=== PATIENT | female | born 1970 | race Caucasian/White ===

== ENCOUNTER 2018-12-06 19:52 | Emergency (ER) | payer BC ==
[~2018-12-06] VITALS: Ht 170.2 cm; Wt 58.6 kg
[2018-12-06 19:54] VITALS: Ht 170.2 cm; Wt 58.6 kg
[2018-12-06] MEDS ORDERED: NITROGLYCERIN 2% 1 GM OINT PKT TD STA (20:07)
[2018-12-06] MEDS ORDERED: ASPIRIN 81 MG TAB PO STA (20:07)
[2018-12-06] MEDS ORDERED: NITROGLYCERIN (SL) 0.4 MG TAB SL PRN (20:30)
[2018-12-06] MEDS ORDERED: IBUP-1542 PO (21:51)
--- NOTE | 2018-12-06 22:04 | ERD ---
ER Documentation Chief Complaint Chief Complaint CHEST PAIN ON/OFF X4DAYS; NO COUGH HPI Patient is a 48-year-old female with no medical problems who presents with chest pain. She said that she has had this off and on for years but today it was worse and she felt tingling in the left shoulder. Her symptoms started 2 PM. She describes it as a sharp pain and then a dull ache which lasts seconds at a time. Upon review of old medical records this is the patient's first visit to the emergency department. She does have a primary doctor and has an appointment with a new authorization rep on Friday. ROS All systems reviewed and are negative except as per history of present illness. Medications Home Meds Active Scripts Ibuprofen* (Motrin*) 600 Mg Tab, 600 MG PO Q6H PRN for PAIN AND OR ELEVATED TEMP, #30 TAB Prov:MARCO ANTONIO CASTANEDA MD 12/06/18 PMhx/Soc Medical and Surgical Hx: pt denies Medical Hx, pt denies Surgical Hx Hx Psychiatric Problems: No Hx Miscellaneous Medical Probl: No Hx Alcohol Use: No Hx Substance Use: No Hx Tobacco Use: No Smoking Status: Unknown if ever smoked FmHx Family History: coronary disease Physical Exam Vitals Vital Signs Date Temp Pulse Resp B/P (MAP) Pulse Ox O2 O2 Flow FiO2 Time Delivery Rate 12/06/18 98.0 94 19 174/83 100 Room Air 20:20 (113) 12/06/18 98.3 98 19 142/81 98 19:54 (101) Physical Exam Const: No acute distress Head: Atraumatic Eyes: Normal Conjunctiva ENT: Normal External Ears, Nose and Mouth. Neck: Full range of motion. No meningismus. Resp: Clear to auscultation bilaterally Cardio: Regular rate and rhythm, no murmurs Abd: Soft, non tender, non distended. Normal bowel sounds Skin: No petechiae or rashes Back: No midline or flank tenderness Ext: No cyanosis, or edema Neur: Awake and alert Psych: Normal Mood and Affect Result Diagram: 12/06/18202212/06/182022 Results 24 hrs Laboratory Tests Test 12/06/18 20:23 12/06/18 20:43 White Blood Count 8.2 10^3/ul Red Blood Count 4.60 10^6/ul Hemoglobin 13.8 g/dl Hematocrit 41.6 % Mean Corpuscular Volume 90.4 fl Mean Corpuscular Hemoglobin 30.0 pg Mean Corpuscular Hemoglobin Concent 33.2 g/dl Red Cell Distribution Width 11.7 % Platelet Count 274 10^3/UL Mean Platelet Volume 11.3 fl Immature Granulocytes % 0.100 % Neutrophils % 66.3 % Lymphocytes % 21.5 % Monocytes % 9.4 % Eosinophils % 1.7 % Basophils % 1.0 % Nucleated Red Blood Cells % 0.0 /100WBC Immature Granulocytes # 0.010 10^3/ul Neutrophils # 5.4 10^3/ul Lymphocytes # 1.8 10^3/ul Monocytes # 0.8 10^3/ul Eosinophils # 0.1 10^3/ul Basophils # 0.1 10^3/ul Nucleated Red Blood Cells # 0.0 10^3/ul Sodium Level 137 mmol/L Potassium Level 3.9 mmol/L Chloride Level 101 mmol/L Carbon Dioxide Level 26 mmol/L Anion Gap 10 Blood Urea Nitrogen 12 mg/dl Creatinine 0.59 mg/dl Est Glomerular Filtrat Rate mL/min > 60 mL/min Glucose Level 111 mg/dl Calcium Level 9.8 mg/dl Troponin I < 0.012 ng/ml POC Beta HCG, Qualitative NEGATIVE Current Medications Medications Dose Sig/Sheri Start Time Status Last (Trade) Ordered Route PRN Stop Time Admin Dose Reason Admin Aspirin 162 mg ONCE STAT 12/06/18 DC 12/06/18 (Aspirin) PO 20:07 20:34 12/06/18 20:09 1 inch ONCE STAT 12/06/18 DC 12/06/18 Nitroglycerin TD 20:07 20:49 12/06/18 20:09 (Nitroglyceri n 2% Oint) 1 tab Q5M UP TO 3 12/06/18 Nitroglycerin DOSES PRN 20:30 SL CHEST (Nitroglyceri PAIN n (Sl Tab) 0.4 Mg) Procedures/MDM EKG #1 read by me: Rate/Rhythm: Regular rate and rhythm at a normal rate Intervals: Normal Impression: No evidence of ischemia or arrhythmia EKG #2 read by me: Rate/Rhythm: Regular rate and rhythm at a normal rate Intervals: Normal Impression: No evidence of ischemia or arrhythmia Chest x-ray negative per radiology. Patient is a 48-year-old female with no cardiac risk factors who presents with chest pain. Laboratory studies were normal including a normal troponin. 2 EKGs were normal. Chest x-ray shows no signs of pneumonia or pneumothorax. At this point I doubt acute coronary syndrome, pneumonia, pneumothorax, pulmonary embolism, or aortic dissection. The patient will be discharged but will need to follow-up with the authorization rep on Friday. The patient could return for any worsening symptoms. The patient will be given copies of laboratory studies and chest x-ray report prior to discharge. Departure Diagnosis: Primary Impression: Chest pain Chest pain type: unspecified Qualified Codes: R07.9 - Chest pain, unspecified Condition: Fair Patient Instructions: Chest Pain, Uncertain Cause Referrals: Dr. Pike Additional Instructions: Call your primary care doctor TOMORROW for an appointment during the next 1-2 days.See the doctor sooner or return here if your condition worsens before your appointment time. MARCO ANTONIO CASTANEDA MD Dec 06, 2018 22:04
[2018-12-06 22:09] VITALS: BP 127/68; PULSE 90; RESP 16
== END 2018-12-06 22:09 | disposition home or self-care (01) ==
LOC: E/R 19:52
DX: R07.9 Chest pain, unspecified (principal)
CPT/HCPCS: 36415; 71045; 80048; 81025; 84484; 85025; 93005